=== PATIENT | male | born 1985 | race Two or more races ===

== ENCOUNTER 2016-11-26 00:26 | Emergency (ER) | payer MEDICAID ==
[~2016-11-26] VITALS: Ht 177.8 cm; Wt 113.4 kg
[2016-11-26 00:39] VITALS: BP 163/102
== END 2016-11-26 08:55 | disposition left against medical advice (07) ==
LOC: ER 00:31
DX: M79.605 Pain in left leg (principal); Z53.21 Procedure and treatment not carried out due to patient leaving prior to being seen by health care provider
CPT/HCPCS: 72100